=== PATIENT | female | born 1955 | race Caucasian/White ===

== ENCOUNTER → 2018-11-11 | Outpatient (CLI) | payer MEDICARE, OTHER ==
[~2018-11-11] MED LIST: ASPIR-LOW81 MG PO; ATORVASTATIN CA80 M1 PO; BIAXIN500 MG PO; CARVEDILOL25 MG PO; GLUCOTROL XL5 MG PO; HYDROCHLOROTH12.5 M3 PO; HYDRODIURIL25 MG PO; IRBESARTAN150 MG PO; K-TAB10 MEQ PO; NEXIUM40 MG PO; POTASSIUM CHLO10 ME2 PO; SYNTHROID0.075 MG PO; Synthroid,Levo88 MCG PO; THYROXINE PO; TOPROL XL50 M1 PO; ZANTAC150 MG PO
== END | disposition home or self-care (01) ==
LOC: US 11-07 07:30
DX: K76.0 Fatty (change of) liver, not elsewhere classified (principal); Z90.49 Acquired absence of other specified parts of digestive tract

== ENCOUNTER 2019-04-01 02:31 | Inpatient (IN) | payer MEDICARE, OTHER ==
[2019-04-01] VITALS (13 sets, daily range): BP systolic 102–156; BP diastolic 51–84
[~2019-04-01] VITALS: Ht 167.6 cm; Wt 103.2 kg
[2019-04-01 02:57] LABS: BASO # 0.1 10*3/uL (0.0-0.1); BASO % 0.9 % (0.0-1.0); EOS # 0.1 10*3/uL (0.0-0.4); HEMATOCRIT 48.5 % (37.0-47.0); HEMOGLOBIN 16.1 g/dl (12.0-16.0); LYMPH # 1.9 10*3/uL (1.3-4.4); LYMPH % 28.6 % (27.0-41.0); MEAN CELL VOLUME 87.7 fl (81.0-99.0); MEAN CORPUSCULAR HGB 29.1 pg (27.0-31.0); MEAN CORPUSCULAR HGB CONC 33.2 g/dl (33.0-37.0); MEAN PLATELET VOLUME 11.9 fl (9.6-12.3); MONO # 0.4 10*3/uL (0.1-1.0); MONO % 5.9 % (3.0-9.0); NEUT # 4.1 10*3/uL (2.3-7.9); NEUT % 62.1 % (47.0-73.0); PLATELET COUNT AUTOMATED 148 10*3/uL (130-400); RED BLOOD COUNT 5.53 10*6/uL (4.10-5.10); RED CELL DISTRI WIDTH 13.2 % (0-14.5); WHITE BLOOD COUNT 6.6 10*3/uL (4.8-10.8)
[2019-04-01 03:08] LABS: ACT PARTIAL THROMBO TIME 24.8 SECONDS (20.0-32.1); INTERNATIONAL NORM RATIO 0.9 (2.0-3.5)
[2019-04-01 03:17] LABS: ALBUMIN 3.6 gm/dl (3.1-4.5); ALKALINE PHOSPHATASE 178 U/L (45-117); BUN 23 mg/dl (7-24); CHLORIDE 105 mmol/L (98-107); CREATININE 0.94 mg/dL (0.55-1.02); POTASSIUM 3.7 mmol/L (3.5-5.1); SGOT/AST 18 IU/L (3-35); SGPT/ALT 35 U/L (12-78); SODIUM 135 mmol/L (136-145); TOTAL PROTEIN 7.2 gm/dL (6.4-8.2)
[2019-04-01 03:24] LABS: TROPONIN I < 0.015 ng/ml (<0.045)
--- NOTE | 2019-04-01 04:45 | NUR ---
A 64, admitted to 4E, under the services of JOANN Ayala DO with a diagnosis of CHF. Chief complaint is CHEST PRESSURE. Patient arrived via bed from ER. Monitor applied. Initial assessment completed. Vital signs taken and recorded. JOANN AYALA DO notified of admission to the unit. Orders received. See assessment for past medical history, medications and allergies. Patient oriented to unit. Clothing/patient valuable form completed. BRENDA MILLER
[2019-04-01] MEDS ORDERED: TOPROL XL50 M1 PO (04:58)
[2019-04-01] MEDS ORDERED: K-TAB20 MEQ PO (04:59)
[2019-04-01] MEDS ORDERED: ALDACTONE25 M1 PO (05:00)
[2019-04-01] MEDS ORDERED: CARAFATE1 G1 PO (05:00)
[2019-04-01 05:51] LABS: FREE T4 1.06 ng/dl (0.76-1.46); PHOSPHOROUS 3.6 mg/dL (2.5-4.9)
--- NOTE | 2019-04-01 05:56 | NUR ---
MADE AWARE THAT PATIENT HAS CH TROP OF 0.200. AND THAT PATIENT IS REQUESTING MEDICATION FOR LEG CRAMPS.
[2019-04-01 05:57] LABS: THYROID STIM HORMONE (HS) 5.47 uIU/ml (0.358-4.75)
--- NOTE | 2019-04-01 06:38 | NUR ---
ATTEMPT TO CALL AT THIS TIME. NO VOICEMAIL SET UP. WILL AWAIT FOR A CALL BACK
--- NOTE | 2019-04-01 06:58 | NUR ---
AWARE OF CONSULT. STATED THAT WILL BE HERE TODAY AND WILL SEE THIS PATIENT
[2019-04-01 07:48] LABS: VITAMIN D, 25-HYDROXY 19.4 ng/mL (30-100)
--- NOTE | 2019-04-01 08:50 | NUR ---
NOTIFIED OF +TROPONIN LEVEL AGAIN & 8 BEAT RUN OF V-TACH. PAGED TO NOTIFY HIM.
--- NOTE | 2019-04-01 09:30 | NUR ---
PAGED FOR 2ND TIME REGARDING +TROP & V-TACH.
--- NOTE | 2019-04-01 12:21 | NUR ---
Dialysis Registered Nurse in to talk to patient. Patient states lives at home with alone. There are few steps in the home. Physician: power reagan Pharmacy: [facility] services: none Patient's level of ADLs: INDEPENDENT Patient has working utilities: all working DME: none Follow-up physician's appointment after d/c: will be made by hospitalist nurse director upon discharge Does patient want to access PORTAL?: no Discharge plan discussed with patient, she lives at home is independent in adls and ambulation she will return to home when medically stable and denies any hoem needs. CHUY TOSCANO
--- NOTE | 2019-04-01 15:09 | NUR ---
SPOKE WITH , HE WILL SEE PATIENT TOMORROW AND DECIDE WHETHER HE WANTS PT TRANSFERRED FOR HEART CATH AT THAT TIME.
[2019-04-01] MEDS ORDERED: ATIVAN0.5 MG PO (17:20)
--- NOTE | 2019-04-01 19:10 | NUR ---
Patient resting quietly with no c/o discomfort. Respirations easy and regular. Vital signs stable. No overt distress. CALL LIGHT WITHIN REACH BRENDA MILLER
--- NOTE | 2019-04-01 21:49 | NUR ---
PATIENT MEDICATED WITH ATIVAN AND TYLENOL FOR C/O SANTANA AND ANXIOUS. WILL CONTINUE TO MONITOR
--- NOTE | 2019-04-01 22:49 | NUR ---
ATIVAN AND TYLENOL APPEARS EFFECTIVE. PATIENT RESTING QUIETLY IN BED, EYES CLOSED. RESP ARE ERND ON 2L NC. CALL LIGHT WITHIN REACH
[2019-04-02] VITALS (7 sets, daily range): BP systolic 94–143; BP diastolic 45–86
--- NOTE | 2019-04-02 04:00 | NUR ---
PATIENT RESTING QUIETLY, EYES CLOSED. RESP ERND. CALL LIGHT WITHIN REACH
[2019-04-02 06:49] LABS: BASO % 0.6 % (0.0-1.0); EOS # 0.2 10*3/uL (0.0-0.4); EOS % 2.5 % (1.0-4.0); HEMATOCRIT 47.7 % (37.0-47.0); HEMOGLOBIN 15.8 g/dl (12.0-16.0); LYMPH # 2.3 10*3/uL (1.3-4.4); LYMPH % 35.7 % (27.0-41.0); MEAN CELL VOLUME 86.9 fl (81.0-99.0); MEAN CORPUSCULAR HGB 28.8 pg (27.0-31.0); MEAN CORPUSCULAR HGB CONC 33.1 g/dl (33.0-37.0); MONO # 0.6 10*3/uL (0.1-1.0); MONO % 9.4 % (3.0-9.0); NEUT # 3.3 10*3/uL (2.3-7.9); NEUT % 51.5 % (47.0-73.0); PLATELET COUNT AUTOMATED 161 10*3/uL (130-400); RED BLOOD COUNT 5.49 10*6/uL (4.10-5.10); RED CELL DISTRI WIDTH 13.1 % (0-14.5); WHITE BLOOD COUNT 6.4 10*3/uL (4.8-10.8)
[2019-04-02 07:19] LABS: BUN 21 mg/dl (7-24); CHLORIDE 101 mmol/L (98-107); CREATININE 0.84 mg/dL (0.55-1.02); POTASSIUM 3.4 mmol/L (3.5-5.1); SODIUM 134 mmol/L (136-145)
--- NOTE | 2019-04-02 10:30 | NUR ---
CALLED DR. ACOSTA PER 'S ORDER. PER DR. ACOSTA HE WAS GOING TO BE ROUNDING ON ALL HIS PATIENTS TODAY, INCLUDING HER. BUT IT WILL NOT BE UNTIL THIS AFTERNOON.
--- NOTE | 2019-04-02 10:45 | NUR ---
NOTIFIED THAT STATED HE WAS GOING TO BE ROUNDING ON THE PATIENT THIS AFTERNOON.
--- NOTE | 2019-04-02 20:00 | NUR ---
Patient resting quietly with C/O ANXIETY STATED THAT SHE WAS TOLD BP WAS LOW, MANUAL BP DONE AT THIS TIME OF 128/82. PATIENT RELAXED AFTERWARDS, STATED SHE FELT BETTER. Respirations easy and regular. Vital signs stable. No overt distress. BRENDA MILLER
[2019-04-03] VITALS: BP 133/63
--- NOTE | 2019-04-03 04:00 | NUR ---
PATIENT SLEEPING, EYES CLOSED. RESP ARE ERND. CALL LIGHT WITHIN REACH
[2019-04-03 08:00] VITALS: BP 132/70
--- NOTE | 2019-04-03 09:00 | NUR ---
case management visits with patient, she states she will return home when medically stable and denies any home needs
[2019-04-03 12:00] VITALS: BP 100/46
--- NOTE | 2019-04-03 14:10 | NUR ---
CASA WITH KARLA TO BE DISCHARGED. IF NOT ON LASIX 20 PO DAILY. LOW SALT DIET. SEE DR Jose ACOSTA [address] RAMIREZ AWARE.
[2019-04-03] MEDS ORDERED: LOSARTAN POTAS100 M1 PO (14:22)
[2019-04-03] MEDS ORDERED: LASIX40 MG PO (14:22)
--- NOTE | 2019-04-03 14:48 | NUR ---
PATIENT TO BE DISCHARGED TO HOME.
--- NOTE | 2019-04-03 15:24 | NUR ---
PATIENT DISCHARGED TO HOME.
== END 2019-04-03 15:24 | disposition home or self-care (01) | DRG 205 ==
LOC: ED 02:31 → EDHOLD 03:53 → 4E 03:53
PROVIDERS: Emergency Medicine; Internal Medicine; Student in an Organized Health Care Education/Training Program; ADMIT Internal Medicine
DX: M94.0 Chondrocostal junction syndrome [Tietze] (principal); I50.43 Acute on chronic combined systolic (congestive) and diastolic (congestive) heart failure; E87.1 Hypo-osmolality and hyponatremia; I42.8 Other cardiomyopathies; I11.0 Hypertensive heart disease with heart failure; K21.9 Gastro-esophageal reflux disease without esophagitis; F41.9 Anxiety disorder, unspecified; E11.65 Type 2 diabetes mellitus with hyperglycemia; E11.69 Type 2 diabetes mellitus with other specified complication; R74.8 Abnormal levels of other serum enzymes; E03.9 Hypothyroidism, unspecified; E78.5 Hyperlipidemia, unspecified; E66.9 Obesity, unspecified; E87.6 Hypokalemia; I34.0 Nonrheumatic mitral (valve) insufficiency; Z95.0 Presence of cardiac pacemaker; Z91.011 Allergy to milk products; Z88.5 Allergy status to narcotic agent; Z91.018 Allergy to other foods; Z79.899 Other long term (current) drug therapy; Z90.49 Acquired absence of other specified parts of digestive tract; Z90.710 Acquired absence of both cervix and uterus; Z83.6 Family history of other diseases of the respiratory system; Z79.82 Long term (current) use of aspirin; Z68.37 Body mass index [BMI] 37.0-37.9, adult

== ENCOUNTER → 2022-08-21 | Outpatient (CLI) | payer MEDICARE, OTHER ==
[~2022-08-21] MED LIST changes: +ALDACTONE25 M1 PO; +ATIVAN0.5 MG PO; +CARAFATE1 G1 PO; +K-TAB20 MEQ PO; +LASIX40 MG PO; +LOSARTAN POTAS100 M1 PO
== END | disposition home or self-care (01) ==
LOC: RAD 13:13
PROVIDERS: ATTEND Internal Medicine
DX: R10.84 Generalized abdominal pain (principal); Z90.49 Acquired absence of other specified parts of digestive tract

== ENCOUNTER → 2023-06-11 | Outpatient (CLI) | payer MEDICARE, OTHER | END | disposition home or self-care (01) | LOC: RAD 05-14 10:00 → MAMMO 05-14 10:30 → RAD 01:41 | PROVIDERS: ATTEND Internal Medicine | DX: Z13.820 Encounter for screening for osteoporosis (principal); N95.9 Unspecified menopausal and perimenopausal disorder; Z90.710 Acquired absence of both cervix and uterus ==

== ENCOUNTER → 2023-07-10 | Outpatient (CLI) | payer MEDICARE, OTHER ==
[2023-07-10 15:20] LABS: BASO % 0.3 % (0.0-1.0); EOS % 0.3 % (1.0-4.0); HEMATOCRIT 48.7 % (37.0-47.0); LYMPH # 0.7 10*3/uL (1.3-4.4); LYMPH % 10.8 % (27.0-41.0); MEAN CELL VOLUME 89.4 fl (81.0-99.0); MEAN CORPUSCULAR HGB CONC 32.4 g/dl (33.0-37.0); MEAN PLATELET VOLUME 11.9 fl (9.6-12.3); MONO # 0.4 10*3/uL (0.1-1.0); MONO % 5.7 % (3.0-9.0); NEUT # 5.2 10*3/uL (2.3-7.9); NEUT % 82.7 % (47.0-73.0); PLATELET COUNT AUTOMATED 118 10*3/uL (130-400); RED BLOOD COUNT 5.45 10*6/uL (4.10-5.10); RED CELL DISTRI WIDTH 13.3 % (0-14.5); WHITE BLOOD COUNT 6.3 10*3/uL (4.8-10.8)
[2023-07-10 15:41] LABS: ALKALINE PHOSPHATASE 151 U/L (46-116); BUN 14 mg/dl (9-23); CHLORIDE 105 mmol/L (98-107); POTASSIUM 3.7 mmol/L (3.4-5.1); SGPT/ALT 37 U/L (5-49); TOTAL PROTEIN 6.8 gm/dL (6.0-8.0)
[2023-07-16 02:06] LABS: CODFISH, IGE <0.10 kU/L (Class 0); CORN, IGE <0.10 kU/L (Class 0); EGG WHITE, IGE <0.10 kU/L (Class 0); MILK (COW), IGE <0.10 kU/L (Class 0); PEANUT, IGE <0.10 kU/L (Class 0); SOYBEAN, IGE <0.10 kU/L (Class 0); WHEAT, IGE <0.10 kU/L (Class 0)
== END | disposition home or self-care (01) ==
LOC: LAB 14:44
PROVIDERS: ATTEND Internal Medicine
DX: T78.40XA Allergy, unspecified, initial encounter (principal); D75.1 Secondary polycythemia; X58.XXXA Exposure to other specified factors, initial encounter

== ENCOUNTER → 2024-09-01 | Outpatient (CLI) | payer MEDICARE, OTHER ==
[~2024-09-01] MED LIST changes: +ELIQUIS5 M1 PO; +ENTRESTO 49 MG1 EACH PO; +Regadenoson 0.4 MG/5 ML SYR IV ONE
== END | disposition home or self-care (01) ==
LOC: CARD 08-27 00:25
PROVIDERS: ATTEND Internal Medicine
DX: I08.2 Rheumatic disorders of both aortic and tricuspid valves (principal); I50.20 Unspecified systolic (congestive) heart failure; I51.7 Cardiomegaly; R06.02 Shortness of breath